=== PATIENT | male | born 1975 | race Caucasian/White ===

== ENCOUNTER 2025-02-07 21:59 | Emergency (ER) | payer SELFPAY | END 2025-02-08 00:31 | disposition home or self-care (01) | LOC: NAV ERS 21:59 | DX: S06.0X1A Concussion with loss of consciousness of 30 minutes or less, initial encounter (principal); I10 Essential (primary) hypertension; Z79.899 Other long term (current) drug therapy; Z87.891 Personal history of nicotine dependence; W01.10XA Fall on same level from slipping, tripping and stumbling with subsequent striking against unspecified object, initial encounter; Y93.21 Activity, ice skating | CPT/HCPCS: 70450; 72125; 96372; J1885 ==